=== PATIENT | female | born 1980 ===

== ENCOUNTER 2023-08-11 05:41 | Day surgery (SDC) | payer OTHER ==
[~2023-08-11 05:41] MED LIST: METFORMIN HCL500 MG; PEPCID40 MG PO; SULINDAC1 GM MC
[2023-08-11] MEDS ORDERED: OXYC1TAB9 PO (11:52)
== END 2023-08-11 17:25 | disposition home or self-care (01) ==
LOC: CIR.AMB 05:41
PROVIDERS: ATTEND Surgery
DX: K64.2 Third degree hemorrhoids (principal); K64.4 Residual hemorrhoidal skin tags; K64.8 Other hemorrhoids; K60.1 Chronic anal fissure; K62.5 Hemorrhage of anus and rectum; I10 Essential (primary) hypertension; Z20.822 Contact with and (suspected) exposure to COVID-19